=== PATIENT | female | born 1985 | race Caucasian/White ===

== ENCOUNTER 2022-06-08 06:00 | Day surgery (SDC) | payer OTHER ==
[~2022-06-08] VITALS: Ht 160 cm; Wt 80.3 kg
[~2022-06-08 06:00] MED LIST: ALBU90OI INH; Flovent 220 Ora12 GM INH; HYDR1TAB94 PO; MELATONIN5 M1 PO; TUMS500 MG PO
[2022-06-08] MEDS ORDERED: MELO7.5 PO (06:23)
--- NOTE | 2022-06-08 07:20 | NUR ---
06/08/22 0720 Nilo Back NO ABX PER
--- NOTE | 2022-06-08 08:21 | NUR ---
PT HAS ONE INCISION SITE ON LEFT SIDE OF FOREHEAD COVERED WITH A SINGLE BANDAID THAT IS CLEAN, DRY, AND INTACT. REQUESTING PO FLUIDS AND FOOD.
--- NOTE | 2022-06-08 09:03 | NUR ---
Patient up to Ambulate independently. Gait steady. Discharge instructions reviewed with patient. Patient verbalizes understanding. Copy given to patient to take home. Dressing to procedure site clean, dry, intact with no visible drainage, swelling, erythema or bruising noted. Patient States Post-Procedure ride home has been arranged. ALL BELONGINGS RETURNED TO PATIENT.
== END 2022-06-08 23:41 | disposition home or self-care (01) ==
LOC: ORSCMMR 06:00 → ORD 07:30 → ORSCMMR 07:30
PROVIDERS: Surgery
PROC: 0JB10ZZ Excision of Face Subcutaneous Tissue and Fascia, Open Approach (ICD-10-PCS; principal; 2022-06-08 07:30)
DX: D17.0 Benign lipomatous neoplasm of skin and subcutaneous tissue of head, face and neck (principal); J45.909 Unspecified asthma, uncomplicated; K21.9 Gastro-esophageal reflux disease without esophagitis; F43.10 Post-traumatic stress disorder, unspecified; F41.0 Panic disorder [episodic paroxysmal anxiety]; E66.9 Obesity, unspecified; Z68.31 Body mass index [BMI] 31.0-31.9, adult; Z87.891 Personal history of nicotine dependence; Z79.899 Other long term (current) drug therapy
CPT/HCPCS: 88304; A9270; J2001; J2795; J7120